=== PATIENT | female | born 1960 | race Caucasian/White ===

== ENCOUNTER 2022-02-16 22:48 | Inpatient (IN) | payer BC ==
[2022-02-16 23:35] LABS: Absolute Lymphocytes (CBC) 3.1 K/uL (0.7-4.9); Lymphocytes % 6.7 % (15.3-44.8); MCV 88.1 fL (80-100); MPV 9.1 fL (7.6-11.3); RBC Red Blood Cell Count 4.43 M/uL (3.86-4.86)
[2022-02-16 23:51] LABS: Albumin 2.8 g/dL (3.4-5.0); Bilirubin Total 0.3 mg/dL (0.2-1.0); Potassium 4.5 mmol/L (3.5-5.1); Protein, Total 6.9 g/dL (6.4-8.2); Troponin High Sensitivity 30.8 pg/mL (<58.9)
[2022-02-17 00:38] LABS: Blood Morphology Comment NOT SEEN (NOT SEEN); Platelet Estimate ADEQ
[2022-02-17] MEDS ORDERED: MORPHINE 4 MG/ML SYR ONE ×2 (01:15→08:37)
--- NOTE | 2022-02-17 01:16 | ER ---
Nurse's Notes [facility] Name: Madi Hartmann Age: 62 yrs Sex: Female : 1960 Arrival Date: 02/16/2022 Time: 22:50 Bed 2 Private MD: Diagnosis: Acute respiratory failure with hypoxia Presentation: 02/16 22:51 Chief complaint: Patient states: she is having difficulty breathing home O2 sat 55% pt bb has hx of lung cancer. Coronavirus screen: At this time, the client does not indicate any symptoms associated with coronavirus-19. Ebola Screen: No symptoms or risks identified at this time. Initial Sepsis Screen: Does the patient meet any 2 criteria? RR > 20 per min. HR > 90 bpm. Yes Does the patient have a suspected source of infection? No. Patient's initial sepsis screen is negative. Risk Assessment: Do you want to hurt yourself or someone else? Patient reports no desire to harm self or others. Onset of symptoms was February 16, 2022. 22:51 Method Of Arrival: Wheelchair bb 22:51 Acuity: LIU 1 bb Triage Assessment: 02/17 01:20 General: Appears distressed, Behavior is appropriate for age. Respiratory: Reports tw5 labored breathing Onset: The symptoms/episode began/occurred just prior to arrival, the patient has severe shortness of breath. Historical: - Allergies: 02/16 23:05 Benadryl; bb - PMHx: 23:05 lung cancer; brain cancer; bb - Immunization history:: Pneumococcal vaccine is up to date, Flu vaccine is up to date. - Social history:: Smoking status: Patient/guardian denies using tobacco, Stopped _ months ago 1. Screenin/04 01:14 Abuse screen: Denies threats or abuse. Denies injuries from another. Nutritional tw5 screening: No deficits noted. Tuberculosis screening: No symptoms or risk factors identified. Fall Risk IV access (20 points). Ambulatory Aid- Crutches/Cane/Walker (15 pts). Gait- Weak (10 pts.). Assessment: 01:14 General: Reports sister at the bedside reports " Her oxygen level dropped to 55 % at tw5 home around 2200. She was diagnosed with lung cancer in April of 2021 it has spread to her brain. She had surgery on may 13th. She has a tube in her lung. We drained 600 ml of her lung today. Her last drain ended around 9 PM. We have been struggling to keep her oxygen level up. It is usually between 88 to low 90s". Pain: Complains of pain in chest Pain currently is 8 out of 10 on a pain scale. Cardiovascular: Capillary refill Rhythm is sinus rhythm. Respiratory: Airway is patent Trachea midline Respiratory effort is labored, with retractions, Breath sounds are diminished in right upper lobe, right middle lobe and right lower lobe. Vital Signs: 02/16 22:51 Pulse 108; Resp 34 S; Pulse Ox 49% on NC; Weight 53.07 kg (R); Height 5 ft. 6 in. bb (167.64 cm) (R); 02/17 00:15 BP 142 / 79; jb4 01:21 Pain 5/10; tw5 03:10 BP 127 / 68; Pulse 76; Resp 20 S; Pulse Ox 93% on 60% BiPAP; tw5 02/16 22:51 Body Mass Index 18.88 (53.07 kg, 167.64 cm) ED Course: 02/16 22:50 Patient arrived in ED. bb 22:56 Michelle Kat is Primary Nurse. tw5 23:05 Triage completed. bb 23:05 Arm band placed on Patient placed in an exam room, on a stretcher, on oxygen, on bb clinical research monitor, on pulse oximetry, RT at bedside for placement of bipap. 23:06 Pranav Quitneros DO is Attending Physician. ms3 23:41 Chest Single View XRAY In Process Unspecified. EDMS 02/17 01:15 Albaro Oglesby is Hospitalizing Provider. ms3 01:20 No provider procedures requiring assistance completed. Inserted saline lock: 20 gauge tw5 in left antecubital area, using aseptic technique. O2 via bipap. 01:30 Blood Culture Adult (2) Sent. tw5 02:57 COVID-19 SARS RT PCR (Document "Date of Onset" if Symptomatic) Sent. tw5 02:57 EKG done, by ED staff, reviewed by Pranav Quinteros DO COVID swab sent to lab. tw5 03:03 Urine Culture Sent. tw5 03:03 Urine Microscopic Only Sent. tw5 03:03 Fairchild cath inserted, using sterile technique, 18 Fr., by nm, balloon inflated, urine tw5 specimen collected. 03:04 Patient has correct armband on for positive identification. Placed in gown. Bed in low tw5 position. Call light in reach. Side rails up X2. Adult w/ patient. Client placed on continuous cardiac and pulse oximetry monitoring. NIBP monitoring applied. Door closed. Noise minimized. Moved to private room. Warm blanket given. Verbal reassurance given. 03:10 patient placed in hospital bed. tw5 16:44 Patient admitted, IV remains in place. rodriguez Administered Medications: 01:12 Drug: morphine 4 mg Route: IVP; Infused Over: 4 mins; Site: left antecubital; tw5 01:21 Follow up: Pain 5/10 Adult; Response: No adverse reaction; Pain is decreased; RASS: tw5 Alert and Calm (0) Medication: 01:14 VIS not applicable for this client. tw5 Outcome: 01:16 Decision to Hospitalize by Provider. ms3 16:43 Admitted to ICU accompanied by nurse, room 3. rodriguez 16:43 Condition: stable 16:43 Instructed on the need for admit. 16:45 Patient left the ED. ss Signatures: Dispatcher [employer] EDMS Gilda Rees RN Vane Gonzalez RN RN Dc Jacobson, Pranav Ivory RN, DO DO ms3 Michelle Kat tw5 Au-StagerNidhi RN RN ha
--- NOTE | 2022-02-17 01:17 | EDPHYS ---
Physician Documentation [facility] Name: Madi Hartmann Age: 62 yrs Sex: Female : 1960 Arrival Date: 02/16/2022 Time: 22:50 Bed 2 Private MD: ED Physician Pranav Quinteros HPI: 02/17 01:56 This 62 yrs old Female presents to ER via Wheelchair with complaints of Breathing ms3 Difficulty. 01:56 The patient has shortness of breath at rest. Onset: The symptoms/episode began/occurred ms3 today. Duration: The symptoms are continuous. The patient's shortness of breath is aggravated by nothing, is alleviated by nothing. Associated signs and symptoms: The patient has no apparent associated signs or symptoms. Severity of symptoms: At their worst the symptoms were severe in the emergency department the symptoms are unchanged. Historical: - Allergies: 02/16 23:05 Benadryl; bb - PMHx: 23:05 lung cancer; brain cancer; bb - Immunization history:: Pneumococcal vaccine is up to date, Flu vaccine is up to date. - Social history:: Smoking status: Patient/guardian denies using tobacco, Stopped _ months ago 1. ROS: 02/17 01:56 Constitutional: Negative for fever, and chills. Cardiovascular: Negative for chest ms3 pain, and palpitations. MS/Extremity: Negative for injury and deformity, Skin: Negative for injury, rash, and discoloration, Psych: Negative for depression, anxiety, suicide ideation, homicidal ideation, and hallucinations. Respiratory: Positive for shortness of breath. All other systems are negative. Exam: 01:56 Constitutional: This is a well developed, well nourished patient who is awake, alert, ms3 and in no acute distress. Neck: Trachea midline, no cervical lymphadenopathy. Supple, full range of motion without nuchal rigidity, or vertebral point tenderness. No Meningismus. Chest/axilla: Normal chest wall appearance and motion. Nontender with no deformity. Cardiovascular: Regular rate and rhythm with a normal S1 and S2. No gallops, murmurs, or rubs. Normal PMI, no JVD. No pulse deficits. Abdomen/GI: Soft, non-tender, with normal bowel sounds. No distension or tympany. No guarding or rebound. No evidence of tenderness throughout. Back: No spinal tenderness. No costovertebral tenderness. Full range of motion. Skin: Warm, dry with normal turgor. Normal color with no rashes, no lesions, and no evidence of cellulitis. 01:56 Respiratory: severe repiratory distress is noted, Respirations: labored breathing, that is severe, Breath sounds: decreased breath sounds, that are moderate, are heard in the left posterior upper lobe, right posterior upper lobe, left posterior lower lobe, right posterior middle lobe and right posterior lower lobe. 02:48 ECG was reviewed by the Attending Physician. ms3 Vital Signs: 02/16 22:51 Pulse 108; Resp 34 S; Pulse Ox 49% on NC; Weight 53.07 kg (R); Height 5 ft. 6 in. bb (167.64 cm) (R); 02/17 00:15 BP 142 / 79; jb4 01:21 Pain 5/10; tw5 03:10 BP 127 / 68; Pulse 76; Resp 20 S; Pulse Ox 93% on 60% BiPAP; tw5 02/16 22:51 Body Mass Index 18.88 (53.07 kg, 167.64 cm) bb MDM: 02/16 23:06 Patient medically screened. ms3 02/17 01:56 Differential diagnosis: pneumonia, Pneumothorax pulmonary edema. Data reviewed: vital ms3 signs, nurses notes, lab test result(s), radiologic studies. Data interpreted: desk monitor: rate is 95 beats/min, rhythm is normal sinus rhythm, with no ectopy, Interpretation: normal rate, normal rhythm, Pulse oximetry: on 60% Bipap is 95 %. Interpretation: acceptable. Counseling: I had a detailed discussion with the patient and/or guardian regarding: the historical points, exam findings, and any diagnostic results supporting the discharge/admit diagnosis, lab results, radiology results, the need for further work-up and treatment in the hospital. ED course: Discussed case with LUCIE Zuniga, and she accepts patient to ICU. Patient improved since arrival to the ED. . 02/16 23:07 Order name: Blood Culture Adult (2) ms3 02/16 23:07 Order name: CBC with Diff; Complete Time: 00:52 ms3 02/16 23:07 Order name: CMP; Complete Time: 00:01 ms3 02/16 23:07 Order name: Lactate; Complete Time: 00:01 ms3 02/16 23:07 Order name: Protime (+inr) ms3 02/16 23:07 Order name: Ptt, Activated ms3 02/16 23:07 Order name: Urine Culture ms3 02/16 23:07 Order name: Urine Microscopic Only ms3 02/16 23:07 Order name: Troponin High Sensitivity; Complete Time: 00:01 ms3 02/16 23:43 Order name: Manual Differential; Complete Time: 00:52 EDMS 02/17 01:22 Order name: COVID-19 SARS RT PCR (Document "Date of Onset" if Symptomatic) tw5 02/17 03:10 Order name: Urine Dipstick-Ancillary EDMS 02/17 03:15 Order name: Lactate Sepsis 2 HR Follow-up; Complete Time: 04:16 EDMS 02/17 04:22 Order name: CBC with Automated Diff EDMS 02/16 23:07 Order name: Chest Single View XRAY ms3 02/16 23:07 Order name: Cardiac monitoring; Complete Time: 01:13 ms3 02/16 23:07 Order name: EKG - Nurse/Tech; Complete Time: 02:52 ms3 02/16 23:07 Order name: IV Saline Lock - Large Bore; Complete Time: 01:13 ms3 02/16 23:07 Order name: Labs collected and sent; Complete Time: 01:13 ms3 02/16 23:07 Order name: O2 Per Protocol; Complete Time: 01:13 ms3 02/16 23:07 Order name: O2 Sat Monitoring; Complete Time: 01:13 ms3 02/16 23:07 Order name: Urine Dipstick-Ancillary (obtain specimen); Complete Time: 03:03 ms3 /04 04:45 Order name: ABG Arterial Blood Gas EDMS 02/17 04:52 Order name: Comprehensive Metabolic Panel EDMS 02/17 12:49 Order name: CT EDMS EC:48 Rate is 84 beats/min. Rhythm is regular. QRS [place] is Normal. VT interval is normal. ms3 Clinical impression: NSR w/ Non-specific ST/T Changes. Interpreted by me. Administered Medications: 01:12 Drug: morphine 4 mg Route: IVP; Infused Over: 4 mins; Site: left antecubital; tw5 01:21 Follow up: Pain 5/10 Adult; Response: No adverse reaction; Pain is decreased; RASS: tw5 Alert and Calm (0) Disposition: :56 Critical Care:. ms3 Disposition Summary: 02/17/22 01:16 Hospitalization Ordered Hospitalization Status: Inpatient Admission ms3 Provider: Albaro Oglesby ms3 Condition: Stable ms3 Problem: new ms3 Symptoms: are unchanged ms3 Bed/Room Type: Standard ms3 Location: Intensive Care Unit(02/17/22 14:16) [facility] Room Assignment: 3-(02/17/22 14:16) [facility] Diagnosis - Acute respiratory failure with hypoxia ms3 Forms: - Medication Reconciliation Form ms3 - SBAR form ms3 Critical care time excluding procedures: :56 Critical care time: Bedside Care: 45 minutes, Consultation: 10 minutes, Family ms3 Intervention: 5 minutes. Total time: 60 minutes Signatures: Dispatcher [employer] Gilda Montilla RN RN bb Pranav Quinteros DO DO ms3 [place] tw5 Merle Warren mb7 Eda Galeano PA PA sb3 Corrections: (The following items were deleted from the chart) 01:27 01:16 Intensive Care Unit ms3 bb 01:27 01:16 ms3 bb 02:52 06 23:07 Accucheck ordered. ms3 tw5 02/17 14:16 01:27 [facility] ER HOLD bb mb7 14:16 01:27 ERHOLD- bb 7
--- NOTE | 2022-02-17 01:46 | P.HP ---
Certification for Inpatient Patient admitted to: Inpatient With expected LOS: >2 Midnights Patient will require the following post-hospital care: None Practitioner: I am a practitioner with admitting privileges, knowledge of patient current condition, hospital course, and medical plan of care. 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 She was noted to be saturating 49% on RA. She has home oxygen and typically saturates in the 90s. The SHOB/hypoxia came on suddenly tonight and she does not know what caused it. She can typically do some activities without any supplemental oxygen. Labs significant for WBC 45, hemoglobin 11, bands 9, lactic acid 5.9, urine positive for UTI. Chest x-ray negative for pneumothorax. She was placed on bipap and saturations went up to the 90s. ABG after bipap for ~1-2 hours had pH 7.4, pCO2 43.9. Will admit patient to ICU. Patient was diagnosed with lung cancer in May 2021 and underwent chemo and radiation. Her medical team is in [place]. She is here visiting family. She has not had chemo since August 2021. 1 month ago, she started having left arm paralysis and found to have a brain mets. They were partially resected but does not have the results. She has been undergoing gamma knife radiation on her brain mets for the past 2 weeks. She also has a R pleural drain which she drains at home and reports having to drain more and more fluid this week. She is scheduled to start immunotherapy soon next week. Dr. Goodson is her operator assistant i cementing- [phone] Dr. Carrillo is her oncologist- [phone] Allergies diphenhydramine [From Benadryl] Allergy (Verified 02/17/22 03:14) Rash Home medications list reviewed: Yes Home Medications: ALPRAZolam [Xanax*] 0.25 mg DAILY 02/17/22 Escitalopram [Lexapro*] 10 mg DAILY 02/17/22 Gabapentin 300 mg DAILY 02/17/22 Hydrocodone Bit/Acetaminophen [Hydrocodon-Acetaminophn 10-325] 10 - 325 mg DAILY 02/17/22 Levetiracetam [Keppra] 500 mg DAILY 02/17/22 Morphine Sulfate [Morphine Sulfate ER] 15 mg DAILY 02/17/22 Zolpidem Tartrate [Ambien] 5 mg BEDTIME 02/17/22 dexAMETHasone [Dexamethasone] 4 mg DAILY 02/17/22 - Past Medical/Surgical History Diabetic: No -: Non-Small Cell Lung Cancer with Metastases to Brain -: Hysterectomy -: Brain Tumor Resection Psychosocial/ Personal History: Patient lives in [place]. - Family History Mother -: Diabetes - Social History Smoking Status: Former smoker Alcohol use: No CD- Drugs: No Caffeine use: Yes Place of Residence: Home Review of Systems General: Weakness Respiratory: Shortness of Breath Physical Examination - Physical Exam General: Alert, In no apparent distress HEENT: Atraumatic, PERRLA, EOMI, Sclerae nonicteric Neck: Supple, 2+ carotid pulse no bruit, No LAD, Without JVD or thyroid abnormality Respiratory: Diminished, Dull, Rhonchi/gurgles Cardiovascular: Regular rate/rhythm, Normal S1 S2 Gastrointestinal: Normal bowel sounds, No tenderness Musculoskeletal: No tenderness Integumentary: No rashes Neurological: Normal gait, Normal speech, Sensation intact, Normal affect - Studies Laboratory Data (last 24 hrs) 02/16/22 23:03: Sodium 140, Potassium 4.5, BUN 20 H, Creatinine 0.73, Glucose 215 H, Total Bilirubin 0.3, AST 20, ALT 48, Alkaline Phosphatase 185 H 02/16/22 23:03: WBC 45.4 H*, Hgb 11.8 L, Hct 39.0, Plt Count 361 Assessment and Plan - Problems (Diagnosis) (1) Acute respiratory failure with hypoxia Current Visit: Yes Status: Acute (2) Non-small cell lung cancer metastatic to brain Current Visit: Yes Status: Acute (3) Leukocytosis Current Visit: Yes Status: Acute Qualifiers: Leukocytosis type: bandemia Qualified Code(s): D72.825 - Bandemia (4) UTI (urinary tract infection) Current Visit: Yes Status: Acute Qualifiers: Urinary tract infection type: acute cystitis Hematuria presence: without hematuria Qualified Code(s): N30.00 - Acute cystitis without hematuria - Plan -Cont on bipap as needed. ABG appropriate. Lactic acid improving. -Pulmonology consulted -Fairchild placed in ED. Monitor output. -Levaquin for presumed infection/UTI, leukocytosis improving -Monitor and optomize electrolytes -Solumedrol and breathing treatments scheduled -Lovenox for VTE ppx Full Code: I discussed code status with patient and her sister. Patient understands her prognosis is poor but wishes to be a full code at this time. Discharge Plan: Home Plan to discharge in: Greater than 2 days - Advance Directives Does patient have a Living Will: No Does patient have a Durable POA for Healthcare: No - Code Status/Comfort Care Code Status Assessed: Yes (Full) Critical Care: No Time Spent Managing Pts Care (In Minutes): 70
[2022-02-17 02:59] LABS: Protime INR 1.14
[2022-02-17 03:10] LABS: Urine Blood Negative (Negative); Urine Glucose Negative (Negative); Urine Protein Negative (Negative); Urine Specific Gravity >=1.030 (1.005-1.030); Urine pH 5.5 (5.0-7.0)
[2022-02-17] MEDS ORDERED: ONDANSETRON 4 MG/2 ML VIAL IV PRN (03:24)
[2022-02-17] MEDS ORDERED: MORPHINE 4 MG/ML SYR IV PRN (03:24)
[2022-02-17] MEDS ORDERED: Levofloxacin500mg IV 500 MG/100 ML BAG IV ONE (03:34)
[2022-02-17 03:43] LABS: Calcium Oxalate Crystals- Ur MODERATE (NONE SEEN); Urine Bacteria 20-50 /HPF (<20); Urine Mucus 3+ /HPF (NONE SEEN); Urine RBC <5 /HPF (NONE SEEN)
[2022-02-17] MEDS ORDERED: Levofloxacin500mg IV 500 MG/100 ML BAG IV SCH (04:00)
[2022-02-17 04:20] LABS: Absolute Lymphocytes (CBC) 0.8 K/uL (0.7-4.9); Hematocrit 32.2 % (36.0-45.0); Lymphocytes % 2.5 % (15.3-44.8); MCV 86.5 fL (80-100); MPV 8.4 fL (7.6-11.3); RBC Red Blood Cell Count 3.73 M/uL (3.86-4.86)
[2022-02-17] MEDS: IPRATROPIUM BROM 0.5MG/2.5ML NEB SCH ×4 (04:20→20:00)
[2022-02-17] MEDS: ALBUTEROL 2.5 MG/3 ML NEB SOL NEB SCH ×4 (04:20→20:00)
[2022-02-17] MEDS ORDERED: ALBUTEROL 2.5 MG/3 ML NEB SOL ONE ×3 (04:25→13:21)
[2022-02-17] MEDS ORDERED: IPRATROPIUM BROM 0.5MG/2.5ML ONE ×3 (04:26→13:22)
[2022-02-17 04:44] LABS: Arterial Blood Carboxyhemoglob 1.6 % (0-1.5); Blood Gas Oxyhemoglobin 91.9 % (94-97); Blood O2 Saturation 94.6 % (92-98.5)
[2022-02-17 04:44] LABS: Albumin 2.4 g/dL (3.4-5.0); Bilirubin Total 0.3 mg/dL (0.2-1.0); Potassium 4.2 mmol/L (3.5-5.1); Protein, Total 5.6 g/dL (6.4-8.2)
[2022-02-17] MEDS ORDERED: METHYLPREDNISOLONE 125 MG INJ IV SCH (06:00)
[2022-02-17] MEDS ORDERED: METHYLPREDNISOLONE 125 MG INJ ONE (08:36)
[2022-02-17] MEDS ORDERED: ENOXAPARIN 40 MG/0.4 ML SQ ONE (08:37)
[2022-02-17] MEDS ORDERED: ONDANSETRON 4 MG/2 ML VIAL ONE (08:37)
[2022-02-17] MEDS: ENOXAPARIN 40 MG/0.4 ML SQ SCH (08:47)
[2022-02-17] MEDS ORDERED: ALPRAZOLAM 0.25 MG TABLET PO SCH ×2 (11:08→14:00)
[2022-02-17] MEDS ORDERED: HYDROCODONE/APAP 10/325 TAB PO SCH (11:09)
[2022-02-17] MEDS ORDERED: ESCITALOPRAM 20 MG TAB PO SCH (11:09)
[2022-02-17] MEDS ORDERED: GABAPENTIN 300 MG CAP PO SCH (11:09)
[2022-02-17] MEDS ORDERED: levETIRAcetam 500 MG TAB PO SCH (11:10)
[2022-02-17] MEDS ORDERED: MORPHINE 15 MG IR TAB PO SCH (11:10)
--- NOTE | 2022-02-17 11:39 | P.CNS ---
Date of Consult: 02/17/22 Reason for Consult: Resp distress Chief Complaint: Acute Respiratory Failure History of Present Illness: Pt is 62yrs of age metastic lung cancer S/p craniotomy and radiation aw Increasing SOB since Sat. No fever chills or cough. Hxof COPD compliant Allergies diphenhydramine [From Benadryl] Allergy (Verified 02/17/22 03:14) Rash Home Medications: ALPRAZolam [Xanax*] 0.25 mg DAILY 02/17/22 Escitalopram [Lexapro*] 10 mg DAILY 02/17/22 Fluticasone/Umeclidin/Vilanter [Trelegy Ellipta 100-62.5-25] 1 each IH DAILY #30 blst.w.dev 02/17/22 Gabapentin 300 mg DAILY 02/17/22 Hydrocodone Bit/Acetaminophen [Hydrocodon-Acetaminophn 10-325] 10 - 325 mg DAILY 02/17/22 Levetiracetam [Keppra] 500 mg DAILY 02/17/22 Morphine Sulfate [Morphine Sulfate ER] 15 mg DAILY 02/17/22 Zolpidem Tartrate [Ambien] 5 mg BEDTIME 02/17/22 dexAMETHasone [Dexamethasone] 4 mg DAILY 02/17/22 - Past Medical/Surgical History Diabetic: No -: Non-Small Cell Lung Cancer with Metastases to Brain -: Hysterectomy -: Brain Tumor Resection Psychosocial/ Personal History: Patient lives in [place]. - Family History Mother Medical History: Diabetes - Social History Alcohol use: No CD- Drugs: No Caffeine use: Yes Place of Residence: Home Review of Systems General: Weakness Respiratory: Shortness of Breath Neurological: Weakness (L arm >>> L leg) Physical Examination Temp Pulse Resp BP Pulse Ox 97.8 F 89 15 108/55 L 96 02/17/22 08:00 02/17/22 08:00 02/17/22 09:17 02/17/22 08:00 02/17/22 09:17 General: Alert, Oriented x3, Mild distress Neck: Supple Respiratory: Clear to auscultation bilaterally, Diminished Cardiovascular: No edema, Regular rate/rhythm, Normal S1 S2 Gastrointestinal: Normal bowel sounds, Soft and benign Musculoskeletal: No clubbing, No contractures Laboratory Data (last 24 hrs) 02/16/22 23:03: Sodium 140, Potassium 4.5, BUN 20 H, Creatinine 0.73, Glucose 215 H, Total Bilirubin 0.3, AST 20, ALT 48, Alkaline Phosphatase 185 H 02/16/22 23:03: WBC 45.4 H*, Hgb 11.8 L, Hct 39.0, Plt Count 361 - Problems (1) Acute respiratory failure with hypoxia Current Visit: Yes Status: Acute Plan: Age 62 with metastic lung cancer S/p craniotomy and radiation ot the brain. Haley to have KEytruda. Acute SOB. DDX PE high risk/ Ct angio. WBC elevated Reduce [employer]um[employer]ol [employer] levaquin to 750 NEbs / LAbs reviewed hypoxicCXRY abnormal ILD lymphangitis ?
[2022-02-17] MEDS ORDERED: ALPRAZOLAM 0.25 MG TABLET ONE ×2 (11:48→16:01)
[2022-02-17] MEDS ORDERED: Levofloxacin 750mg IV 750 MG/150 ML BAG IV ONE (11:49)
[2022-02-17] MEDS ORDERED: GABAPENTIN 300 MG CAP ONE (11:49)
[2022-02-17] MEDS ORDERED: ESCITALOPRAM 20 MG TAB PO ONE (12:00)
[2022-02-17] MEDS ORDERED: levETIRAcetam 500 MG TAB PO ONE (12:00)
--- NOTE | 2022-02-17 12:48 | RAD REPORT ---
EXAM DESCRIPTION: CT - Chest For Pe Angio - 02/17/2022 12:27 pm CLINICAL HISTORY: sob COMPARISON: None. TECHNIQUE: Dynamically enhanced axial 3 mm thick images of the chest were obtained during administra tion of <100> mL Isovue 370 IV contrast. Coronal and oblique reconstruction images were generated and reviewed. Exam utilizes a protocol for optimal evaluation of pulmonary arterial tree. Maximum intensity projections 3D imaging was utilized All CT scans are performed using dose optimization technique as appropriate and may include automated exposure control or mA/KV adjustment according to patient size. FINDINGS: A pulmonary embolus is not seen. A thoracic aortic aneurysm is not noted. A pleural effusion is not seen. A pericardial effusion is not seen. 7.4 centimeter right middle lobe mass with occlusion of right bronchus and right atelectasis. The mas s extends into the right hilum and mediastinum. COPD. Mild to moderate ground-glass opacities within the lungs Ruptured left breast implant Chest tube within right pleural space. Small pleural effusion. Bilateral adrenal masses. Right adrenal mass is the largest measuring 3 centimeters. Hepatomegaly 3.2 centimeter mass abuts the anterior aspect of the left lobe of the liver consistent with metastasi s. 1.6 centimeter additional metastasis lies within the anterior pericardiac fat Mild compression deformities involve 2 thoracic vertebral bodies IMPRESSION: Negative for a pulmonary embolism. Right lung mass consistent with neoplasm Metastatic disease
[2022-02-17] MEDS: Levofloxacin 750mg IV 750 MG/150 ML BAG IV SCH (13:00)
[2022-02-17] MEDS: GABAPENTIN 300 MG CAP PO SCH ×2 (14:00→21:05)
--- NOTE | 2022-02-17 15:35 | P.PN ---
Date of Service: 02/17/22 Patient seen and examined. She was on BiPAP during my examination. BiPAP has been weaned to high flow oxygen. CTA thorax shows no pulmonary embolism. It does demonstrate moderate groundglass opacities. 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 Pneumonia not ruled out given severe leukocytosis with left shift. Continue to titrate oxygen. Seen by pulmonary. IV steroid and bronchodilators. Antibiotics. Patient has Pleurx catheter which is drained daily. Resume other home medications.
[2022-02-17] MEDS: ALPRAZOLAM 0.25 MG TABLET PO PRN (15:58)
[2022-02-17] MEDS: HYDROCODONE/APAP 10/325 TAB PO PRN (16:42)
[2022-02-17] MEDS: METHYLPREDNISOLONE 40 MG INJ IV SCH (16:56)
[2022-02-17] MEDS ORDERED: MORPHINE 4 MG/ML SYR IV ONE (18:25)
[2022-02-17] MEDS ORDERED: POLYETHYL GLY 3350 17 GM/DOSE PO PRN (18:26)
[2022-02-17] MEDS ORDERED: KETOROLAC 30 MG/ML INJ IV ONE (21:03)
[2022-02-17] MEDS: ZOLPIDEM TARTRATE 5 MG TABLET PO SCH (21:05)
[2022-02-17] MEDS: levETIRAcetam 500 MG TAB PO SCH (21:06)
[2022-02-18] MEDS: METHYLPREDNISOLONE 40 MG INJ IV SCH ×3 (01:25→16:57)
[2022-02-18] MEDS: IPRATROPIUM BROM 0.5MG/2.5ML NEB SCH ×4 (02:10→19:55)
[2022-02-18] MEDS: ALBUTEROL 2.5 MG/3 ML NEB SOL NEB SCH ×4 (02:10→19:55)
[2022-02-18] MEDS: ALPRAZOLAM 0.25 MG TABLET PO PRN ×3 (05:21→19:13)
[2022-02-18] MEDS: HYDROCODONE/APAP 10/325 TAB PO PRN ×2 (05:21→11:03)
[2022-02-18 06:36] LABS: Albumin 2.2 g/dL (3.4-5.0); Bilirubin Total 0.2 mg/dL (0.2-1.0); Magnesium 2.4 mg/dL (1.8-2.4); Phosphorus 3.7 mg/dL (2.5-4.9); Potassium 4.3 mmol/L (3.5-5.1); Protein, Total 5.8 g/dL (6.4-8.2)
[2022-02-18 06:37] LABS: Absolute Lymphocytes (CBC) 0.4 K/uL (0.7-4.9); Lymphocytes % 1.1 % (15.3-44.8); MCV 87.9 fL (80-100); MPV 8.9 fL (7.6-11.3); RBC Red Blood Cell Count 3.76 M/uL (3.86-4.86)
[2022-02-18] MEDS: GABAPENTIN 300 MG CAP PO SCH ×3 (08:44→20:12)
[2022-02-18] MEDS: ENOXAPARIN 40 MG/0.4 ML SQ SCH (08:44)
[2022-02-18] MEDS: levETIRAcetam 500 MG TAB PO SCH ×2 (08:44→20:12)
[2022-02-18] MEDS: FLUOXETINE 20 MG CAP PO SCH (08:44)
[2022-02-18] MEDS: ESCITALOPRAM 20 MG TAB PO SCH (08:44)
[2022-02-18 10:45] LABS: Anisocytosis 1+; Blood Morphology Comment NOTED (NOT SEEN); Hypochromasia 1+; Macrocytosis 1+; Ovalocytes 1+; Platelet Estimate ADEQ; Poikilocytosis 1+
[2022-02-18] MEDS: Levofloxacin 750mg IV 750 MG/150 ML BAG IV SCH (11:05)
[2022-02-18] MEDS ORDERED: MORPHINE 4 MG/ML SYR IV ONE (12:00)
--- NOTE | 2022-02-18 13:14 | P.PN ---
Subjective Date of Service: 02/18/22 Chief Complaint: Acute Respiratory Failure No major improvement in her shortness of breath. Patient has been afebrile. Currently requiring high flow oxygen. Physical Examination - Vital Signs Temperature: 97.3 F Blood Pressure: 112/55 Pulse: 77 Respirations: 18 Pulse Ox (%): 95 - Physical Exam General: Alert, Mild distress (Respiratory distress) HEENT: Mucous membr. moist/pink Neck: Supple, JVD not distended Respiratory: Crackles/rales (Bilateral) Cardiovascular: No edema, Regular rate/rhythm, Normal S1 S2 Gastrointestinal: Normal bowel sounds, Soft and benign, Non-distended, No tenderness Musculoskeletal: No swelling, No tenderness Integumentary: No rashes Neurological: Normal strength at 5/5 x4 extr, Cranial nerves 3-12 intact - Studies Microbiology Data (last 24 hrs): 02/16/22 23:07 Catheterized Urine [place] Count - Final No growth. 02/16/22 23:07 Catheterized Urine - Final No growth. Assessment And Plan - Current Problems (Diagnosis) (1) Sepsis Current Visit: Yes Status: Acute (2) Acute respiratory failure with hypoxia Current Visit: Yes Status: Acute (3) Non-small cell lung cancer metastatic to brain Current Visit: Yes Status: Acute (4) UTI (urinary tract infection) Current Visit: Yes Status: Acute Qualifiers: Urinary tract infection type: acute cystitis Hematuria presence: without hematuria Qualified Code(s): N30.00 - Acute cystitis without hematuria (5) Malignant pleural effusion Current Visit: Yes Status: Acute - Plan Patient seen by pulmonary. CTA thorax is negative for pulm embolism but did report diffuse groundglass opacity. Patient with severe leukocytosis. Differential diagnosis for pulmonary infiltrate:Pneumonia versus pulmonary lym phangitic carcinomatosis. IV Levaquin. Sputum culture if patient can provide a sample. Intermittent IV Lasix. Patient has Pleurx catheter and drains pleural fluid daily. Continue daily drainage. Urine culture shows no growth, blood cultures: No growth to date. Antibiotics as above for UTI. Continue home medications for pain and anxiety. Constipation prophylaxis Monitor CBC to follow leukocytosis.
[2022-02-18 13:33] LABS: Arterial Blood Carboxyhemoglob 1.5 % (0-1.5); Blood Gas Oxyhemoglobin 90.1 % (94-97); Blood O2 Saturation 92.6 % (92-98.5)
[2022-02-18] MEDS: ZOLPIDEM TARTRATE 5 MG TABLET PO SCH (20:12)
[2022-02-19] MEDS: METHYLPREDNISOLONE 40 MG INJ IV SCH ×3 (00:47→17:08)
[2022-02-19] MEDS: ALBUTEROL 2.5 MG/3 ML NEB SOL NEB SCH ×4 (01:10→20:30)
[2022-02-19] MEDS: IPRATROPIUM BROM 0.5MG/2.5ML NEB SCH ×4 (01:10→20:30)
[2022-02-19] MEDS: ALPRAZOLAM 0.25 MG TABLET PO PRN ×2 (03:50→18:43)
[2022-02-19 04:53] LABS: Absolute Lymphocytes (CBC) 0.3 K/uL (0.7-4.9); Hematocrit 30.5 % (36.0-45.0); Lymphocytes % 1.1 % (15.3-44.8); MCV 86.1 fL (80-100); MPV 8.8 fL (7.6-11.3); RBC Red Blood Cell Count 3.54 M/uL (3.86-4.86)
[2022-02-19 05:04] LABS: Albumin 2.2 g/dL (3.4-5.0); Bilirubin Total 0.1 mg/dL (0.2-1.0); Potassium 4.4 mmol/L (3.5-5.1); Protein, Total 5.8 g/dL (6.4-8.2)
[2022-02-19 05:35] VITALS: BMI 19.3
[2022-02-19] MEDS: HYDROCODONE/APAP 10/325 TAB PO PRN (06:40)
[2022-02-19] MEDS: levETIRAcetam 500 MG TAB PO SCH ×2 (07:57→20:43)
[2022-02-19] MEDS: ESCITALOPRAM 20 MG TAB PO SCH (07:57)
[2022-02-19] MEDS: GABAPENTIN 300 MG CAP PO SCH ×3 (07:57→20:44)
[2022-02-19] MEDS: FLUOXETINE 20 MG CAP PO SCH (07:57)
[2022-02-19] MEDS: ENOXAPARIN 40 MG/0.4 ML SQ SCH (07:57)
--- NOTE | 2022-02-19 08:15 | P.PN ---
Subjective Date of Service: 02/19/22 Chief Complaint: Acute Respiratory Failure Subjective: Improving (Patient is improving oxygen requirements declining) Review of Systems General: Weakness Respiratory: Shortness of Breath Physical Examination - Vital Signs Temperature: 97.6 F Blood Pressure: 101/54 Pulse: 68 Respirations: 25 Pulse Ox (%): 97 - Physical Exam General: Alert, In no apparent distress, Oriented x3 Respiratory: Clear to auscultation bilaterally, Diminished Cardiovascular: No edema, Regular rate/rhythm - Studies Microbiology Data (last 24 hrs): 02/16/22 23:07 Catheterized Urine [place] Count - Final No growth. 02/16/22 23:07 Catheterized Urine - Final No growth. Assessment And Plan - Current Problems (Diagnosis) (1) Acute respiratory failure with hypoxia Current Visit: Yes Status: Acute Plan: Respiratory failure no evidence of pulmonary embolism lateral interstitial changes possible lymphangitis she has a right lower lobe lung mass not excluded an infection oxygen requirements declining white count is also declining change to p.o. levofloxacin continue with steroids [facility] labs reviewed cultures negative patient has metastatic lung cancer undergoing treatment in [place] David is to stay here in [place] also had mets to the brain completed radiation therapy
[2022-02-19] MEDS: levoFLOXacin 750 MG TAB PO SCH (10:04)
[2022-02-19] MEDS: MORPHINE 2 MG/ML SYR IV PRN (12:23)
--- NOTE | 2022-02-19 13:04 | RAD REPORT ---
EXAM DESCRIPTION: RAD - Chest Single View - 02/16/2022 11:39 pm CLINICAL HISTORY: SOB. COMPARISON: None. TECHNIQUE: Single view AP chest radiograph(s). FINDINGS: Low lung volumes with moderate diffuse pulmonary interstitial thickening and moderate biba silar groundglass opacities. Left IJ infusion port catheter terminates near the superior cavoatrial j unction. Possible nodules in the right lower lung, measuring up to 1 cm. A thin catheter projecting o iker the right lower lung could represent a pleural catheter. No definite pleural effusion. No pneumot horax. Nonenlarged cardiomediastinal silhouette. Chondroid matrix in the left proximal humerus extend ing for approximately 5.2 cm in length with no concerning features. IMPRESSION: 1. Moderate pulmonary interstitial thickening and bibasilar opacification. Correlate f or potential pulmonary edema. 2. Possible small right lower lung pulmonary nodules. Consider correlation with CT. 3. Suspected benign enchondroma in the left proximal humerus. Electronically signed by: Alma Penaloza MD 02/16/2022 11:57 PM CDT Due to temporary technical issues with the PACS/Fluency reporting system, reports are being signed by the in house radiologist without review as a courtesy to ensure prompt reporting. The interpreting r adiologist is fully responsible for the content of the report.
--- NOTE | 2022-02-19 13:24 | EKG ---
Test Date: 2022-02-17 Test Time: 02:48:14 Gizzard Peeler: MEASUREMENT RESULTS: Intervals: Rate: 84 AK: 110 QRSD: 76 QT: 382 QTc: 451 Venus: P: 30 AK: 110 QRS: 24 T: 52 INTERPRETIVE STATEMENTS: Sinus rhythm with short AK Possible Left atrial enlargement Borderline ECG Compared to ECG 03/21/2007 19:50:49 Short AK interval now present Sinus bradycardia no longer present Sinus arrhythmia no longer present Electronically Signed On 02-19-22 13:22:31 CDT by Gold Craig
--- NOTE | 2022-02-19 16:21 | P.PN ---
Subjective Date of Service: 02/19/22 Chief Complaint: Acute Respiratory Failure Patient states she is less short of breath today Patient has been afebrile. She is still requiring high flow oxygen. Physical Examination - Vital Signs Temperature: 97.6 F Blood Pressure: 113/66 Pulse: 68 Respirations: 28 Pulse Ox (%): 96 - Physical Exam General: Alert, Cachectic, Mild distress HEENT: Other (High flow oxygen.) Neck: JVD not distended Respiratory: Diminished (Bilateral), Other (Mild bibasilar crackles) Cardiovascular: Regular rate/rhythm, Normal S1 S2 Gastrointestinal: Soft and benign, Non-distended, No tenderness Musculoskeletal: No swelling Integumentary: No rashes Neurological: Normal strength at 5/5 x4 extr Assessment And Plan - Current Problems (Diagnosis) (1) Sepsis Current Visit: Yes Status: Acute (2) Acute respiratory failure with hypoxia Current Visit: Yes Status: Acute (3) Non-small cell lung cancer metastatic to brain Current Visit: Yes Status: Acute (4) UTI (urinary tract infection) Current Visit: Yes Status: Acute Qualifiers: Urinary tract infection type: acute cystitis Hematuria presence: without hematuria Qualified Code(s): N30.00 - Acute cystitis without hematuria (5) Malignant pleural effusion Current Visit: Yes Status: Acute - Plan Pulmonary is following. Leukocytosis is slowly improving. CTA thorax is negative for pulm embolism but did report diffuse groundglass opacity. Patient with severe leukocytosis. Differential diagnosis for pulmonary infiltrate:Pneumonia versus pulmonary lymphangitic carcinomatosis. Continue Levaquin. Sputum culture if patient can provide a sample. Intermittent IV Lasix as needed Patient has Pleurx catheter and drains pleural fluid daily. Continue daily drainage. Urine culture shows no growth, blood cultures: No growth to date. Antibiotics as above for UTI. Continue home medications for pain and anxiety. Constipation prophylaxis Monitor CBC to follow leukocytosis. Consult oncology for goals of care discussion and cancer treatment.
[2022-02-19] MEDS: ZOLPIDEM TARTRATE 5 MG TABLET PO SCH (20:43)
[2022-02-19] MEDS: ENSURE ENLIVE 237 ML CAN PO SCH (21:00)
[2022-02-20] MEDS: ALBUTEROL 2.5 MG/3 ML NEB SOL NEB SCH ×4 (01:40→19:25)
[2022-02-20] MEDS: IPRATROPIUM BROM 0.5MG/2.5ML NEB SCH ×4 (01:40→19:25)
[2022-02-20] MEDS: METHYLPREDNISOLONE 40 MG INJ IV SCH ×2 (01:48→08:19)
[2022-02-20] MEDS: HYDROCODONE/APAP 10/325 TAB PO PRN ×4 (02:26→22:21)
[2022-02-20 05:04] LABS: Absolute Lymphocytes (CBC) 0.3 K/uL (0.7-4.9); Hematocrit 33.1 % (36.0-45.0); Lymphocytes % 1.2 % (15.3-44.8); MCV 87.5 fL (80-100); MPV 9.1 fL (7.6-11.3); RBC Red Blood Cell Count 3.78 M/uL (3.86-4.86)
[2022-02-20 05:14] LABS: Potassium 4.5 mmol/L (3.5-5.1)
[2022-02-20] MEDS: ALPRAZOLAM 0.25 MG TABLET PO PRN (05:30)
--- NOTE | 2022-02-20 06:08 | P.PN ---
Date of Service: 02/20/22 Subjective: Oxygen supplementation weaning, breathing more comfortably, still feels some slight pleuritic pain on the right side with deep breath No new symptoms/concerns Continues with Weinberg catheter Weaned down to 5 L nasal cannula this morning ROS: 10 point ROS as noted above, otherwise negative Physical exam GEN: Alert, oriented, NAD HEENT: Normal conjunctiva, sclera anicteric CV: Regular rate and rhythm, no edema Pulm: Nonlabored respirations on 5L NC, diminished at bases bilaterally (R>L), mild crackles at right base ABD: Soft, nontender, nondistended Neuro: Normal speech, normal affect weinberg in place R pleurx catheter in place Problem List acute on chronic respiratory failure secondary to cancer and pneumonia sepsis secondary to pneumonia non-small cell lung cancer, metastatic to brain malignant pleural effusion chronic leukocytosis Metastatic non-small cell lung cancer, status post chemo, gamma knife radiation leukocytosis ~30s-40s has been her norm for the last ~4 months per patient. Her oncologist is aware and has been monitoring according to patient CTA chest - PE negative, +diffuse groundglass opacity, no definitive pneumonia Continue Levaquin. Intermittent IV Lasix as needed Patient has Pleurx catheter and drains pleural fluid daily. Continue daily drainage. Urine culture shows no growth, blood cultures: No growth to date. Continue home medications for pain and anxiety. Constipation prophylaxis Monitor CBC to follow leukocytosis. patient plans to return to [facility] after discharge for continuity dc weinberg PT consult transfer to floor Code: full Dispo: home, ~1-2 days, pending stability on 4L NC Time Spent Managing Pts Care (In Minutes): 35
--- NOTE | 2022-02-20 07:18 | RAD REPORT ---
EXAM DESCRIPTION: RAD - Chest Single View - 02/20/2022 5:25 am CLINICAL HISTORY: hypoxia, f/u effusion /opacity COMPARISON: CT chest 02/17/2022, portable chest 02/16/2022 TECHNIQUE: AP portable chest image was obtained 02/20/2022 5:25 am . FINDINGS: Left-sided Port-A-Cath remains in place. Right-sided chest tube unchanged in positioning. No measurable pneumothorax in the right side. Improved aeration of the left lung field is present with increased lung volume and decreased intersti tial opacification. Interstitial markings remain prominent. Large mass density at the right base remains. Remnant pleural fluid also stable from prior imaging. N o new right lung field findings noted. Heart and vasculature are normal. No measurable pleural effusion and no pneumothorax. No acute bony abnormality seen. No acute aortic findings suspected. IMPRESSION: Right-side chest tube unchanged in positioning. Right base mass density with pleural and parenchymal opacification have not changed. Improved aeration of the left lung field with remnant interstitial opacification still present.
[2022-02-20] MEDS: levETIRAcetam 500 MG TAB PO SCH ×2 (08:19→20:51)
[2022-02-20] MEDS: FLUOXETINE 20 MG CAP PO SCH (08:19)
[2022-02-20] MEDS: ENOXAPARIN 40 MG/0.4 ML SQ SCH (08:19)
[2022-02-20] MEDS: ENSURE ENLIVE 237 ML CAN PO SCH ×2 (08:19→20:51)
[2022-02-20] MEDS: levoFLOXacin 750 MG TAB PO SCH (08:19)
[2022-02-20] MEDS: GABAPENTIN 300 MG CAP PO SCH ×3 (08:19→20:51)
[2022-02-20] MEDS: MORPHINE 2 MG/ML SYR IV PRN ×2 (12:55→20:56)
--- NOTE | 2022-02-20 13:15 | P.PN ---
Subjective Date of Service: 02/20/22 Chief Complaint: Acute Respiratory Failure Subjective: Improving (Doing better O2 requirement decreasing) Review of Systems General: Weakness Respiratory: Shortness of Breath Physical Examination - Vital Signs Temperature: 97.6 F Blood Pressure: 146/80 Pulse: 64 Respirations: 19 Pulse Ox (%): 93 - Physical Exam General: Alert, Oriented x3 Respiratory: Clear to auscultation bilaterally, Diminished Cardiovascular: Regular rate/rhythm Assessment And Plan - Current Problems (Diagnosis) (1) Acute respiratory failure with hypoxia Current Visit: Yes Status: Acute Plan: Better 4 l nasal cannula. , improving change to Po pred for now/ WBC declining/ Chem normal. Stable to be transferred to the floor cxry reviewed R sided PleuRx catheter in place Change to Po pred for now DC planning on pred and levaquin
[2022-02-20] MEDS: ZOLPIDEM TARTRATE 5 MG TABLET PO SCH (20:51)
[2022-02-20] MEDS: predniSONE 20 MG TAB PO SCH (20:51)
[2022-02-21] MEDS: ALBUTEROL 2.5 MG/3 ML NEB SOL NEB SCH ×2 (01:20→07:45)
[2022-02-21] MEDS: IPRATROPIUM BROM 0.5MG/2.5ML NEB SCH ×2 (01:20→07:45)
[2022-02-21] MEDS: ALPRAZOLAM 0.25 MG TABLET PO PRN (04:34)
[2022-02-21 04:56] LABS: Absolute Lymphocytes (CBC) 0.4 K/uL (0.7-4.9); Hematocrit 33.1 % (36.0-45.0); Lymphocytes % 1.6 % (15.3-44.8); MCV 87.1 fL (80-100); MPV 8.7 fL (7.6-11.3)
[2022-02-21] MEDS: predniSONE 20 MG TAB PO SCH (08:12)
[2022-02-21] MEDS: ENOXAPARIN 40 MG/0.4 ML SQ SCH (08:13)
[2022-02-21] MEDS: levoFLOXacin 750 MG TAB PO SCH (08:13)
[2022-02-21] MEDS: GABAPENTIN 300 MG CAP PO SCH (08:15)
[2022-02-21] MEDS: levETIRAcetam 500 MG TAB PO SCH (08:16)
[2022-02-21] MEDS: FLUOXETINE 20 MG CAP PO SCH (08:25)
[2022-02-21] MEDS: ENSURE ENLIVE 237 ML CAN PO SCH (08:25)
[2022-02-21] MEDS: HYDROCODONE/APAP 10/325 TAB PO PRN (08:25)
[2022-02-21] MEDS: MORPHINE 2 MG/ML SYR IV PRN (09:02)
[2022-02-21 09:17] VITALS: BP 117/60; TEMP 97.6
[2022-02-21 15:21] VITALS: O2SAT 100
--- NOTE | 2022-02-25 21:55 | P.DS ---
Admission Date: 02/17/22 Discharge Date: 02/21/22 Disposition: ROUTINE DISCHARGE Discharge Condition: GOOD Reason for Admission: Acute Respiratory Failure Consultations: Pulmonology - Dr. Baez Brief History of Present Illness: Patient is a 62 y/o F with PMH of Stage 4 Non-Small Cell Lung Cancer with Metastases to Brain who presented to the ED with shortness of breath and hypoxia. She was noted to be saturating 49% on RA. She has home oxygen and typically saturates in the 90s. The SHOB/hypoxia came on suddenly tonight and she does not know what caused it. She can typically do some activities without any supplemental oxygen. Labs significant for WBC 45, hemoglobin 11, bands 9, lactic acid 5.9, urine positive for UTI. Chest x-ray negative for pneumothorax. She was placed on bipap and saturations went up to the 90s. ABG after bipap for ~1-2 hours had pH 7.4, pCO2 43.9. Admitted to ICU Patient was diagnosed with lung cancer in May 2021 and underwent chemo and radiation. Her medical team is in [place]. She is here visiting family. She has not had chemo since August 2021. 1 month ago, she started having left arm paralysis and found to have a brain mets. They were partially resected but does not have the results. She has been undergoing gamma knife radiation on her brain mets for the past 2 weeks. She also has a R pleural drain which she drains at home and reports having to drain more and more fluid this week. She is scheduled to start immunotherapy soon next week. Dr. Goodson is her greenhouse manager- [phone] Dr. Carrillo is her oncologist- [phone] Hospital Course: Problem List acute on chronic respiratory failure secondary to cancer and pneumonia sepsis secondary to pneumonia non-small cell lung cancer, metastatic to brain malignant pleural effusion chronic leukocytosis Patient was treated with supplemental oxygen, empiric antibiotics for possible pneumonia, and steroids. She had improvement throughout her hospitalization and weaned down to 3-4L nasal cannula. Pulmonology, Dr. Baez was consulted. A CTA chest was performed which was negative for pulmonary embolus. Noted 7.4cm right middle lob mass with some occlusion of right bronchus and associated right atelectasis. Mass extends into the right hilum and mediastinum. Also noted 3.2cm mass abutting anterior aspect of left lobe of liver consistent with metastasis, and a 1.6cm metastasis within the anterior pericardia fat. No pericardial effusion was noted. She had gradual improvement of her symptoms. She continued with self drainage of her right pleural effusions. She was noted to have significant leukocytosis on admission (45), which improved to the mid-high 20s. She reported this has been ongoing for the last several m onths and has been monitored. She was deemed stable for discharge home. Plans to follow up with her Oncologist next week. Discharged with 12 day taper of prednisone and 7 days of antibiotic (levaquin). Vital Signs/Physical Exam: Temp Pulse Resp BP Pulse Ox 97.6 F 69 16 117/60 100 02/21/22 08:00 02/21/22 08:00 02/21/22 09:32 02/21/22 08:00 02/21/22 09:32 Physical exam GEN: Alert, oriented, NAD HEENT: Normal conjunctiva, sclera anicteric CV: Regular rate and rhythm, no edema Pulm: Nonlabored respirations on 3L NC, diminished at bases bilaterally (R>L) ABD: Soft, nontender, nondistended Neuro: Normal speech, normal affect R pleurx catheter in place Laboratory Data at Discharge: WBC 27.1 K/uL (4.3-10.9) H* 02/21/22 04:39 Hgb 10.3 g/dL (12.0-15.0) L 02/21/22 04:39 Hct 33.1 % (36.0-45.0) L 02/21/22 04:39 Plt Count 213 K/uL (152-406) 02/21/22 04:39 PT 12.6 SECONDS (9.5-12.5) H 02/17/22 02:40 INR 1.14 02/17/22 02:40 APTT 29.9 SECONDS (24.3-36.9) 02/17/22 02:40 Sodium 143 mmol/L (136-145) 02/20/22 04:33 Potassium 4.5 mmol/L (3.5-5.1) 02/20/22 04:33 BUN 26 mg/dL (7-18) H 02/20/22 04:33 Creatinine 0.62 mg/dL (0.55-1.3) 02/20/22 04:33 Glucose 156 mg/dL (74-106) H 02/20/22 04:33 Phosphorus 3.7 mg/dL (2.5-4.9) 02/18/22 06:07 Magnesium 2.4 mg/dL (1.8-2.4) 02/18/22 06:07 Total Bilirubin 0.1 mg/dL (0.2-1.0) L 02/19/22 04:32 AST 6 U/L (15-37) L 02/19/22 04:32 ALT 23 U/L (12-78) 02/19/22 04:32 Alkaline Phosphatase 137 U/L (45-117) H 02/19/22 04:32 Home Medications: ALPRAZolam [Xanax*] 0.25 mg TID PRN 02/17/22 Escitalopram Oxalate [Lexapro] 20 mg PO DAILY 02/17/22 Fluoxetine HCl [Prozac] 40 mg PO DAILY 02/17/22 Gabapentin 300 mg TID 02/17/22 Hydrocodone Bit/Acetaminophen [Hydrocodon-Acetaminophn 10-325] 10 - 325 mg Q6HR PRN 02/17/22 Levetiracetam [Keppra] 500 mg BID 02/17/22 Polyethylene Glycol 3350 [Miralax] 17 gm PO DAILY 02/17/22 Zolpidem Tartrate [Ambien] 5 mg BEDTIME 02/17/22 levoFLOXacin [Levaquin*] 750 mg PO DAILY 7 Days #7 tab 02/21/22 predniSONE [Deltasone*] 10 mg PO SEECOM 12 Days #28 tab 02/21/22 New Medications: predniSONE [Deltasone*] 10 mg PO SEECOM 12 Days #28 tab levoFLOXacin [Levaquin*] 750 mg PO DAILY 7 Days #7 tab Followup: Unknown,U [Primary Care Provider] - Time spent managing pt's care (in minutes): 45
== END 2022-02-21 11:30 | disposition home or self-care (01) | DRG 871 ==
LOC: ER 22:48 → ERHOLD 02-17 01:40 → 3RD-ICU 02-17 15:53 → 2ND 02-20 16:20
PROVIDERS: ADMIT Internal Medicine; ATTEND Internal Medicine
PROC: 5A09357 Assistance with Respiratory Ventilation, Less than 24 Consecutive Hours, Continuous Positive Airway Pressure (ICD-10-PCS; principal; 2022-02-17)
PROC: 5A0945A Assistance with Respiratory Ventilation, 24-96 Consecutive Hours, High Flow/Velocity Cannula (ICD-10-PCS; 2022-02-17)
DX: A41.9 Sepsis, unspecified organism (principal); J18.9 Pneumonia, unspecified organism; J96.21 Acute and chronic respiratory failure with hypoxia; C34.90 Malignant neoplasm of unspecified part of unspecified bronchus or lung; C79.31 Secondary malignant neoplasm of brain; J91.0 Malignant pleural effusion; J98.11 Atelectasis; C79.89 Secondary malignant neoplasm of other specified sites; N30.00 Acute cystitis without hematuria; R64 Cachexia; Z68.1 Body mass index [BMI] 19.9 or less, adult; C80.0 Disseminated malignant neoplasm, unspecified; R65.20 Severe sepsis without septic shock; Z92.3 Personal history of irradiation; Z92.21 Personal history of antineoplastic chemotherapy; Z20.822 Contact with and (suspected) exposure to COVID-19
CPT/HCPCS: 36415; 51702; 71045; 71275; 80048; 80053; 81003; 81015; 82805; 83605; 83735; 84100; 84145; 84484; 85025; 85610; 85730; 87040; 87086; 87088; 93005; 94002; 94003; 94010; 94640; 94660; 94760; 96374; 97110; 97116; 97161; 97530; 99291; 99292; J1650; J2270; J2405; J2920; J2930; J7512; Q9967; U0003

== ENCOUNTER 2022-09-18 09:56 | Emergency (ER) | payer BC ==
--- NOTE | 2022-09-18 10:33 | RAD REPORT ---
EXAM DESCRIPTION: Pamela Pa And Lat (2 Views)09/18/2022 10:19 am CLINICAL HISTORY: Shortness of breath COMPARISON: September 05, 2022 FINDINGS: No significant change in the appearance of the right hemithorax opacification. This repres ents a combination of elevation of the right hemidiaphragm, mass, atelectasis and loculated pleural e ffusion. Left lung appears clear. A central venous catheter in place
[2022-09-18] MEDS ORDERED: MORPHINE 4 MG/ML SYR ONE (11:03)
[2022-09-18] MEDS ORDERED: ONDANSETRON 4 MG/2 ML VIAL ONE (11:03)
[2022-09-18 11:09] LABS: Absolute Lymphocytes (CBC) 0.4 K/uL (0.7-4.9); Hematocrit 42.8 % (36.0-45.0); Lymphocytes % 4.7 % (15.3-44.8); MCV 87.1 fL (80-100); MPV 8.4 fL (7.6-11.3); RBC Red Blood Cell Count 4.91 M/uL (3.86-4.86)
[2022-09-18 11:29] LABS: ALT/SGPT 16 U/L (13-56); AST/SGOT 12 U/L (15-37); Albumin 3.4 g/dL (3.4-5.0); Alkaline Phosphatase 142 U/L (45-117); BUN Blood Urea Nitrogen 7 mg/dL (7-18); Bicarbonate 31 mmol/L (21-32); Bilirubin Direct 0.1 mg/dL (0-0.2); Bilirubin Total 0.4 mg/dL (0.2-1.0); Creatine Phosphokinase 19 U/L (26-192); Glomerular Filtration Rate 101 ml/min (=/>90); Glucose Level 194 mg/dL (74-106); Lipase 46 U/L (73-393); Magnesium 2.3 mg/dL (1.6-2.4); NT PRO-BNP 767 pg/mL (<125); Protein, Total 6.9 g/dL (6.4-8.2); Sodium Level 140 mmol/L (136-145); Troponin High Sensitivity 9.7 pg/mL (<58.9)
[2022-09-18 11:33] LABS: CKMB Creatine Kinase MB < 1.0 ng/mL (1.0-3.6)
[2022-09-18 12:16] LABS: Blood Morphology Comment NOT SEEN (NOT SEEN); Platelet Estimate ADEQ; White Blood Cell Scan OK (OK)
--- NOTE | 2022-09-18 12:24 | RAD REPORT ---
EXAM DESCRIPTION: CT - Chest For Pe Angio - 09/18/2022 11:59 am CLINICAL HISTORY: Shortness of breath COMPARISON: February 2022 TECHNIQUE: Dynamically enhanced axial 3 mm thick images of the chest were obtained during administra tion of <100> mL Isovue 370 IV contrast. Coronal and oblique reconstruction images were generated and reviewed. Exam utilizes a protocol for optimal evaluation of pulmonary arterial tree. Maximum intensity projections 3D imaging was utilized All CT scans are performed using dose optimization technique as appropriate and may include automated exposure control or mA/KV adjustment according to patient size. FINDINGS: A pulmonary embolus is not seen. A thoracic aortic aneurysm is not noted. A pericardial effusion is not seen. A 7.5 centimeter right lung mass obstructs right middle and right lower lobe bronchi resulting in ate lectasis. The mass encases branches of the right pulmonary artery Minimal right pleural effusion 15 millimeter soft tissue mass anterior to the left lobe of liver. IMPRESSION: Negative for a pulmonary embolism.
--- NOTE | 2022-09-18 12:51 | ER ---
[facility] Name: Madi Hartmann Age: 62 yrs Sex: Female : 1960 Arrival Date: 09/18/2022 Time: 09:57 Bed 25 Private MD: Diagnosis: Dyspnea;Malignant neoplasm of upper lobe, right bronchus or lung-known cancer Presentation: 09/18 10:00 Chief complaint: Patient states: SOB, home O2 increased to 5 lpm, usually on 3 lpm, hx jl7 stage 4 lung cancer. Coronavirus screen: Vaccine status: Patient reports receiving the 2nd dose of the covid vaccine. Ebola Screen: No symptoms or risks identified at this time. Initial Sepsis Screen: Does the patient meet any 2 criteria? No. Patient's initial sepsis screen is negative. Does the patient have a suspected source of infection? No. Patient's initial sepsis screen is negative. Risk Assessment: Do you want to hurt yourself or someone else? Patient reports no desire to harm self or others. Onset of symptoms is unknown. 10:00 Method Of Arrival: Wheelchair jl7 10:00 Acuity: LIU 3 jl7 Triage Assessment: 10:04 General: Appears in no apparent distress. uncomfortable, Behavior is cooperative, jl7 anxious. Pain: Complains of pain in back Pain currently is 8 out of 10 on a pain scale. Respiratory: Reports shortness of breath Onset: The symptoms/episode began/occurred at an unknown time. the patient has mild shortness of breath. Historical: - Allergies: 10:04 Benadryl; jl7 - Home Meds: 10:04 Trelegy Ellipta inhalation [Active]; budesonide oral [Active]; ipratropium bromide jl7 inhalation [Active]; gabapentin 300 mg oral cap [Active]; morphine 30 mg Oral CERP 1 cap 2 times per day [Active]; prednisone 10 mg Oral tab [Active]; fluoxetine 40 mg Oral cap [Active]; oxycodone 15 mg Oral TR12 [Active]; quetiapine oral [Active]; - PMHx: 10:04 brain cancer; Lung Cancer; jl7 - Immunization history:: Client reports receiving the 2nd dose of the Covid vaccine. - Social history:: Smoking status: Patient reports the use of cigarette tobacco products. Screenin:15 [facility] ED Fall Risk Assessment (Adult) History of falling in the last 3 months, db including since admission No falls in past 3 months (0 pts) Confusion or Disorientation No (0 pts) Intoxicated or Sedated No (0 pts) Impaired Gait No (0 pts) Mobility Assist Device Used No (0 pt) Altered Elimination No (0 pt) Score/Fall Risk Level 0 - 2 = Low Risk Oriented to surroundings, Maintained a safe environment. Abuse screen: Denies threats or abuse. Denies injuries from another. Nutritional screening: No deficits noted. Tuberculosis screening: No symptoms or risk factors identified. Assessment: 10:02 Reassessment: ERP in triage assessing pt. jl7 11:53 Reassessment: Patient appears in no apparent distress at this time. patient to CT. db 12:32 Reassessment: Patient appears in no apparent distress at this time. Patient and/or db family updated on plan of care and expected duration. Pain level reassessed. Patient is alert, oriented x 3, equal unlabored respirations, skin warm/dry/pink. patient states has hx of lung cancer and is feeling SOB. Patient is on 3L O2 at home. patient states has chest discomfort and has anxiety. Reassessment: patient ambulatory to restroom without O2 unassisted. NAD. General: Appears in no apparent distress. comfortable, Behavior is calm, cooperative, appropriate for age. Pain: Complains of pain in chest. Neuro: No deficits noted. Level of Consciousness is awake, alert, obeys commands, Oriented to person, place, time, situation, Moves all extremities. Speech is normal, Facial symmetry appears normal. Cardiovascular: Reports chest discomfort and SOB Capillary refill < 3 seconds Rhythm is sinus rhythm. Respiratory: Reports shortness of breath Airway is patent Respiratory effort is even, unlabored, Respiratory pattern is regular, symmetrical, Breath sounds are clear bilaterally. GI: No deficits noted. No signs and/or symptoms were reported involving the gastrointestinal system. : No deficits noted. No signs and/or symptoms were reported regarding the genitourinary system. EENT: No deficits noted. No signs and/or symptoms were reported regarding the EENT system. Derm: No deficits noted. No signs and/or symptoms reported regarding the dermatologic system. Vital Signs: 10:00 BP 120 / 85; Pulse 99; Resp 24; Temp 97.9; Pulse Ox 100% on 5 lpm NC; Weight 54.43 kg; jl7 Height 5 ft. 6 in. (167.64 cm); Pain 8/10; 12:15 BP 109 / 96; Pulse 18; Resp 18; Pulse Ox 99% on 3 lpm NC; db 13:00 BP 106 / 78; Pulse 92; Resp 16; Pulse Ox 100% on 3 lpm NC; db 10:00 Body Mass Index 19.37 (54.43 kg, 167.64 cm) jl7 Vitals: 12:15 Cardiac Rhythm Assessment Regular Sinus rhythm. db ED Course: 09:57 Patient arrived in ED. am2 09:59 Elizabeth Adam FNP-C is PHCP. kb 09:59 Sreedhar Park MD is Attending Physician. kb 10:04 Triage completed. jl7 10:04 Arm band placed on right wrist. Patient placed in waiting room, Patient notified of jl7 wait time. 10:21 XRAY Chest Pa And Lat (2 Views) In Process Unspecified. EDMS 11:53 Regina Lopez, RN is Primary Nurse. db 12:00 Inserted saline lock: 20 gauge in left antecubital area, using aseptic technique. db ,using aseptic technique. placed by another staff member. Oxygen administration via nasal cannula patient placed herself on 5L O2. Lowered patient O2 to 3L NC. Patient remains at 100% O2 saturation. Patient states is on 3L O2 at home. Response to oxygen therapy: symptoms improved. 12:01 CT Chest For PE Angio In Process Unspecified. EDMS 12:36 Second set of blood cultures drawn by ED staff. db 13:20 Patient has correct armband on for positive identification. Bed in low position. Call db light in reach. Side rails up X 1. Client placed on continuous cardiac and pulse oximetry monitoring. NIBP monitoring applied. Warm blanket given. 13:20 No provider procedures requiring assistance completed. IV discontinued, intact, db bleeding controlled, No redness/swelling at site. Administered Medications: 11:04 Drug: morphine 4 mg Route: IVP; Infused Over: 4 mins; Site: left antecubital; kc6 12:05 Follow up: Response: No adverse reaction db 11:04 Drug: Zofran (Ondansetron) 4 mg Route: IVP; Site: left antecubital; kc6 12:05 Follow up: Response: No adverse reaction db 12:50 Drug: SOLU-Medrol (methylPrednisoLONE) 125 mg Route: IVP; Site: left antecubital; db 13:20 Follow up: Response: No adverse reaction db Medication: 12:15 VIS not applicable for this client. db Outcome: 12:50 Discharge ordered by . lakeisha 13:20 Discharged to home ambulatory, with family. db 13:20 Condition: stable 13:20 Discharge instructions given to patient, Instructed on discharge instructions, follow up and referral plans. Demonstrated understanding of instructions, Prescriptions given X 1. 13:44 Patient left the ED. db Signatures: Dispatcher [employer] EDMS Elizabeth Adam, BONE DRIER-C BONE DRIER-Peter Jeffries RN RN jl7 Mimi Robert Kaitlyn, RN RN kc6 Regina Lopez RN RN db
--- NOTE | 2022-09-18 12:51 | EDPHYS ---
Physician Documentation [facility] Name: Madi Hartmann Age: 62 yrs Sex: Female : 1960 Arrival Date: 09/18/2022 Time: 09:57 Bed 25 Private MD: ED Physician Sreedhar Park HPI: 09/18 13:09 This 62 yrs old Female presents to ER via Wheelchair with complaints of Breathing kb Difficulty. 13:09 The patient has shortness of breath at rest. Onset: The symptoms/episode began/occurred kb 3 day(s) ago. Duration: The symptoms are continuous. The patient's shortness of breath is aggravated by exertion, is alleviated by nothing. Associated signs and symptoms: The patient has no apparent associated signs or symptoms. Severity of symptoms: At their worst the symptoms were moderate in the emergency department the symptoms are unchanged. The patient has experienced similar episodes in the past. The patient has not recently seen a physician. Pt reports increased shortness of breath started 3 days ago. Reports she increased her home oxygen from 3L to 5L yesterday, but still feels short of breath. Historical: - Allergies: 10:04 Benadryl; jl7 - Home Meds: 10:04 Trelegy Ellipta inhalation [Active]; budesonide oral [Active]; ipratropium bromide jl7 inhalation [Active]; gabapentin 300 mg oral cap [Active]; morphine 30 mg Oral CERP 1 cap 2 times per day [Active]; prednisone 10 mg Oral tab [Active]; fluoxetine 40 mg Oral cap [Active]; oxycodone 15 mg Oral TR12 [Active]; quetiapine oral [Active]; - PMHx: 10:04 brain cancer; Lung Cancer; jl7 - Immunization history:: Client reports receiving the 2nd dose of the Covid vaccine. - Social history:: Smoking status: Patient reports the use of cigarette tobacco products. ROS: 13:08 Constitutional: Negative for fever, chills, and weight loss. kb 13:08 Respiratory: Positive for shortness of breath. 13:08 All other systems are negative. Exam: 13:08 Constitutional: This is a well developed, well nourished patient who is awake, alert, kb and in no acute distress. Head/Face: Normocephalic, atraumatic. ENT: Moist Mucous membranes Cardiovascular: Regular rate and rhythm with a normal S1 and S2. No gallops, murmurs, or rubs. No pulse deficits. Abdomen/GI: Soft, non-tender. No distention Skin: Warm, dry with normal turgor. Normal color. MS/ Extremity: Pulses equal, no cyanosis. Neurovascular intact. Full, normal range of motion. Neuro: Awake and alert, GCS 15, oriented to person, place, time, and situation. Moves all extremities. Normal gait. Psych: Awake, alert, with orientation to person, place and time. Behavior, mood, and affect are within normal limits. 13:08 Respiratory: the patient does not display signs of respiratory distress, Respirations: normal, Breath sounds: decreased breath sounds, that are moderate, are heard in the right upper lobe and right posterior upper lobe, otherwise clear. 18:25 ECG was reviewed by the Attending Physician. Vital Signs: 10:00 BP 120 / 85; Pulse 99; Resp 24; Temp 97.9; Pulse Ox 100% on 5 lpm NC; Weight 54.43 kg; jl7 Height 5 ft. 6 in. (167.64 cm); Pain 8/10; 12:15 BP 109 / 96; Pulse 18; Resp 18; Pulse Ox 99% on 3 lpm NC; db 13:00 BP 106 / 78; Pulse 92; Resp 16; Pulse Ox 100% on 3 lpm NC; db 10:00 Body Mass Index 19.37 (54.43 kg, 167.64 cm) jl7 MDM: 09:59 Patient medically screened. 10:22 Differential diagnosis: Bronchitis pneumonia, pulmonary edema, Pulmonary Embolism. Data kb reviewed: vital signs, nurses notes. Data interpreted: Pulse oximetry: on 5L(s) per nasal canula, normal home o2 is 3L, pt increased to 5L yesterday is 100 %. Interpretation: normal. 12:41 Counseling: I had a detailed discussion with the patient and/or guardian regarding: the kb historical points, exam findings, and any diagnostic results supporting the discharge/admit diagnosis, lab results, radiology results, the need for outpatient follow up, a family practitioner, a airport clerk, to return to the emergency department if symptoms worsen or persist or if there are any questions or concerns that arise at home. 12:51 ED course: Consideration of hospitalization: Observation considered due to increased kb oxygen need, but pt is on home O2 with sat of 99-100% on 5L. Pt has appt with airport clerk, Dr Baez, tomorrow. Pt appears comfortable without increased work of breathing. Workup within normal limits with exception of known mass in right lung. Lungs clear throughout with diminished sounds in right upper lobe. Outpatient treatment and follow up decided on after discussion and shared decision making with pt. Pt will return for worsening symptoms or any other concerns; Management of the patient was discussed with the following: Dr Park; I considered the following discharge prescriptions or medication management in the emergency department: antibiotics considered, but, after complete workup, not indicated; History obtained from: Daughter and patient . 09/18 10:05 Order name: BMP; Complete Time: 11:38 kb 09/18 10:05 Order name: Blood Culture Adult (2) kb 09/18 10:05 Order name: CBC with Diff; Complete Time: 12:17 kb 09/18 10:05 Order name: CPK; Complete Time: 11:38 kb 09/18 10:05 Order name: Ckmb; Complete Time: 11:38 kb 09/18 10:05 Order name: Hepatic Function; Complete Time: 11:38 kb 09/18 10:05 Order name: Lipase; Complete Time: 11:38 kb 09/18 10:05 Order name: Magnesium; Complete Time: 11:38 kb 09/18 10:05 Order name: NT PRO-BNP; Complete Time: 11:38 kb 09/18 10:05 Order name: PT-INR; Complete Time: 11:21 kb 09/18 10:05 Order name: Ptt, Activated; Complete Time: 11:21 kb 09/18 10:05 Order name: Troponin HS; Complete Time: 11:38 kb 09/18 10:05 Order name: XRAY Chest Pa And Lat (2 Views); Complete Time: 10:41 kb 09/18 11:32 Order name: CBC Smear Scan; Complete Time: 12:17 EDMS 09/18 10:05 Order name: EKG; Complete Time: 10:06 kb 09/18 10:05 Order name: Cardiac monitoring; Complete Time: 11:53 kb 09/18 10:05 Order name: EKG - Nurse/Tech; Complete Time: 11:45 kb 09/18 10:05 Order name: IV Saline Lock; Complete Time: 11:30 kb 09/18 10:05 Order name: Labs collected and sent; Complete Time: 11:30 kb 09/18 10:05 Order name: O2 Per Protocol; Complete Time: 11:30 kb 09/18 10:05 Order name: O2 Sat Monitoring; Complete Time: 11:30 kb 09/18 11:39 Order name: CT Chest For PE Angio; Complete Time: 12:31 kb 09/18 12:41 Order name: Vital Signs; Complete Time: 13:34 kb EC:25 Rate is 88 beats/min. Rhythm is regular. QRS [place] is Normal. MN interval is normal at kb 140 msec. QRS interval is normal at 82 msec. QT interval is prolonged at 505 msec. Administered Medications: 11:04 Drug: morphine 4 mg Route: IVP; Infused Over: 4 mins; Site: left antecubital; kc6 12:05 Follow up: Response: No adverse reaction db 11:04 Drug: Zofran (Ondansetron) 4 mg Route: IVP; Site: left antecubital; kc6 12:05 Follow up: Response: No adverse reaction db 12:50 Drug: SOLU-Medrol (methylPrednisoLONE) 125 mg Route: IVP; Site: left antecubital; db 13:20 Follow up: Response: No adverse reaction db Disposition: 15:18 Co-signature as Attending Physician, Sreedhra Park MD I agree with the assessment and rt plan of care. Disposition Summary: 09/18/22 12:50 Discharge Ordered Location: Home kb Condition: Stable kb Diagnosis - Dyspnea kb - Malignant neoplasm of upper lobe, right bronchus or lung - known cancer kb Followup: kb - With: Emergency Department - When: As needed - Reason: Worsening of condition Followup: kb - With: Private Physician - When: 2 - 3 days - Reason: Recheck today's complaints, Continuance of care, Re-evaluation by your physician Discharge Instructions: - Discharge Summary Sheet kb - Shortness of Breath, Adult, [id number] kb - Lung Cancer kb Forms: - Medication Reconciliation Form kb - Thank You Letter kb - Antibiotic Education kb - Prescription Opioid Use kb Prescriptions: - Prednisone 20 mg Oral Tablet - take 1 tablet by ORAL route once daily for 5 days; 5 tablet; Refills: 0, kb Product Selection Permitted Signatures: Dispatcher [employer] Elizabeth Connelly FNP-C SOBEIDA-Ckb Peter Sky, RN RN jl7 Sruthi Etienne, RN RN kc6 Regina Lopez, RN RN db Sreedhar Park MD MD rt
[2022-09-18] MEDS ORDERED: METHYLPREDNISOLONE 125 MG INJ ONE (13:08)
[2022-09-18 14:20] VITALS: TEMP 97.9
--- NOTE | 2022-09-18 14:31 | EKG ---
Test Date: 2022-09-18 Test Time: 11:40:53 Online Marketer: SAYDA MEASUREMENT RESULTS: Intervals: Rate: 88 CT: 140 QRSD: 82 QT: 418 QTc: 505 [place]: P: 45 CT: 140 QRS: 68 T: 62 INTERPRETIVE STATEMENTS: Normal sinus rhythm with sinus arrhythmia Nonspecific T wave abnormality Prolonged QT Abnormal ECG Compared to ECG 02/17/2022 02:48:14 T-wave abnormality now present Prolonged QT interval now present Short CT interval no longer present Electronically Signed On 09-18-22 14:30:18 MANAGER OUTREACH by Gold Craig
[2022-09-18 14:32] VITALS: BP 106/78; O2SAT 100
== END 2022-09-18 13:44 | disposition home or self-care (01) ==
LOC: ER 09:56
DX: C34.11 Malignant neoplasm of upper lobe, right bronchus or lung (principal); F17.210 Nicotine dependence, cigarettes, uncomplicated; Z88.8 Allergy status to other drugs, medicaments and biological substances
CPT/HCPCS: 93005; 87040 ×2; 85025; 80048; 36415; 83735; 82550; 85610; 80076; 85730; 84484; 82553; 83690; 83880; 71275; 71046; Q9967; J2930; J2405; 96374; 96375; 99285